=== PATIENT | male | born 1980 | race Caucasian/White ===

== ENCOUNTER 2021-09-28 10:05 | Inpatient (IN) | payer OTHER ==
[~2021-09-28] VITALS: Ht 182.9 cm; Wt 102.3 kg
[2021-09-28 11:18] LABS: BUN/CREAT RATIO (CALC) 15.1 RATIO; CREATININE 0.93 mg/dL (0.67-1.17); POTASSIUM 3.7 mmol/L (3.5-5.1)
[2021-09-28 11:22] LABS: BASOPHIL 0.5 % (0-2); EOSINOPHIL 1.8 % (0-5); HCT 43.9 % (42.0-52.0); HGB 14.1 g/dl (13.2-18.0); LYMPHOCYTE 22.1 % (15-48); MCH 28.6 pg (25.0-31.0); MCHC 32.1 g/dL (32.0-36.0); MONOCYTE 6.3 % (0-12); MPV 11.9 fL (6.0-9.5); NEUTROPHIL 68.8 % (41-80); NRBC 0; PLT 144 K/uL (150-400); RBC 4.93 M/uL (4.70-6.00); WBC 10.5 K/uL (4.0-10.5)
[2021-09-28] MEDS ORDERED: PRINIVIL20 MG PO (15:31)
--- NOTE | 2021-09-29 17:04 | NUR ---
09/29/21 Mr. Lynne lives at home with his former spouse and their 2 children; 6 and 12 y/o. He is employed. PCP = Aisha Guerrero NP. - No discharge planning needs are anticipated.
[2021-09-30 05:43] LABS: BASOPHIL 0.5 % (0-2); EOSINOPHIL 2.3 % (0-5); HCT 42.9 % (42.0-52.0); HGB 13.6 g/dl (13.2-18.0); LYMPHOCYTE 23.3 % (15-48); MCH 28.8 pg (25.0-31.0); MCHC 31.7 g/dL (32.0-36.0); MCV 90.7 fL (78.0-100.0); MONOCYTE 9.6 % (0-12); MPV 11.3 fL (6.0-9.5); NRBC 0; PLT 161 K/uL (150-400); RBC 4.73 M/uL (4.70-6.00); RDW 14.5 % (11.5-14.0); WBC 8.7 K/uL (4.0-10.5)
[2021-09-30 05:59] LABS: CREATININE 0.94 mg/dL (0.67-1.17); MAGNESIUM 1.8 mg/dL (1.8-2.4); POTASSIUM 4.3 mmol/L (3.5-5.1)
--- NOTE | 2021-10-01 15:34 | NUR ---
[address] SARAH TO UNCLAMP THE CHEST TUBE AND HE WILL BE OVER LATER TO CHECK ON THE PATIENT, POSSIBLE DISCHARGE. 1407 CHEST TUBE WAS UNCLAMPED AT THE BEDSIDE. WILL MONITOR FOR CHANGES.
--- NOTE | 2021-10-01 18:07 | NUR ---
1750 DR. GUSMAN HERE TO REMOVED THE CHEST TUBE. TAPE WAS REMOVED FROM THE TUBING AND THE SUTURES WHERE CUT AND AFTER TAKING SEVERAL BIG BREATHS THE TUBE WAS REMOVED AND A VASOLINE GAUZE AND 4X4 PRESSURE DRESSING WAS APPLIED. PATIENT TOLERATED THE REMOVAL WITHOUT ANY EXTRA PROBLEMS. WILL MONITOR FOR 1 HOUR AND IF THERE ARE NO INCREASED SHORTNESS OF AIR, OR BREATHING PROBLEMS THE PATIENT WILL BE DISCHARGED AND TO FOLLOW UP WITH DR. GUSMAN ON NEXT WEEK. UNTIL HE HAS SEEN DR. GUSMAN HE WILL REMAIN OFF FROM WORK.
[2021-10-01] MEDS ORDERED: ULTRAM50 MG PO (18:09)
[2021-10-01] MEDS ORDERED: TIZANIDINE HCL4 MG PO ×2 (18:53→19:09)
[2021-10-01] MEDS ORDERED: NEURONTIN600 MG PO (18:53)
[2021-10-01] MEDS ORDERED: NORCO 5-325 TA1 EACH PO (18:53)
== END 2021-10-01 19:45 | disposition home or self-care (01) | DRG 201 ==
LOC: FER 10:05 → FTCU 11:47 → FMS 10-01 09:25
PROVIDERS: Emergency Medicine; ADMIT Internal Medicine
PROC: 0W9B30Z Drainage of Left Pleural Cavity with Drainage Device, Percutaneous Approach (ICD-10-PCS; principal; 2021-09-28)
DX: J93.83 Other pneumothorax (principal); Z20.822 Contact with and (suspected) exposure to COVID-19; I10 Essential (primary) hypertension; F17.210 Nicotine dependence, cigarettes, uncomplicated; D69.6 Thrombocytopenia, unspecified; R51.9 Headache, unspecified; M54.2 Cervicalgia; M54.9 Dorsalgia, unspecified; G89.29 Other chronic pain; F32.A Depression, unspecified; Z79.899 Other long term (current) drug therapy; Z87.442 Personal history of urinary calculi
CPT/HCPCS: 36415; 71045; 80048; 83735; 85025; 96374; 96375; J1170; J1885; J2270; J2405; U0002